=== PATIENT | female | born 1995 ===

== ENCOUNTER 2018-01-08 15:31 | Emergency (ER) | payer OTHER, BC ==
[2018-01-08] MEDS ORDERED: Tdap Vaccine 0.5 ml Vial (10-64 yrs) IM ONE ×2 (16:09→16:15)
--- NOTE | 2018-01-08 16:14 | ED PDOC ---
Lower Extremity Pain/Injury Chief Complaint (Nursing): Lower Extremity Problem/Injury Chief Complaint (Provider): Puncture wound History Per: Patient History/Exam Limitations: no limitations Onset/Duration Of Symptoms: Hrs (x5) Current Symptoms Are (Timing): Still Present Additional Complaint(s): Shahida Liao is a 22 year old female, with no significant past medical history, who presents to the emergency department complaining of right knee pain onset since 11:00am this morning. Patient works at [employer] and reports while at work she kneeled over when a needle accidentally went in her knee. She pulled it out and cleaned the wound with soap and water but is now complaining of pain to the right knee. She is not up to date with her tetanus. She denies any other medical complaints. PMD: None provided. Past Medical History Reviewed: Historical Data, Nursing Documentation, Vital Signs Vital Signs: Last Vital Signs Temp 98.1 F 01/08/18 15:54 Pulse 85 01/08/18 15:54 Resp 16 01/08/18 15:54 BP 131/80 01/08/18 15:54 Pulse Ox 96 01/08/18 15:54 - Medical History PMH: Gastritis, Migraine - Surgical History Surgical History: No Surg Hx - Family History Family History: States: Unknown Family Hx - Immunization History Hx Tetanus Toxoid Vaccination: No Hx Influenza Vaccination: No Hx Pneumococcal Vaccination: No - Home Medications Home Medications: Ambulatory Orders Medication Instructions Recorded Ondansetron ODT [Zofran ODT] 4 mg PO QID #20 odt 10/26/16 guaiFENesin/Codeine [Robitussin 5 ml PO Q4H #150 ml 10/26/16 w/Codeine] Cephalexin [cephalexin] 500 mg PO QID #20 cap 01/08/18 - Allergies Allergies/Adverse Reactions: Allergies Allergy/AdvReac Type Severity Reaction Status Date / Time No Known Allergies Allergy Verified 12/10/14 12:08 Review of Systems ROS Statement: Except As Marked, All Systems Reviewed And Found Negative Musculoskeletal: Positive for: Leg Pain (right knee) Physical Exam - Reviewed Nursing Documentation Reviewed: Yes Vital Signs Reviewed: Yes - Physical Exam Appears: Positive for: Well, Non-toxic, No Acute Distress Head Exam: Positive for: ATRAUMATIC, NORMAL INSPECTION, NORMOCEPHALIC Skin: Positive for: Normal Color, Warm, Dry Eye Exam: Positive for: Normal appearance Extremity: Positive for: Normal ROM (Right lower extremities normal. No decrease in strength or motor ability. ), Other (Small <0.1mm puncture wound to medial side of right patella. No bleeding, drainage, discharge or erythema. Wound healed. Walking with mild limp.). Negative for: Deformity, Swelling Neurologic/Psych: Positive for: Alert, Oriented - ECG O2 Sat by Pulse Oximetry: 96 (RA) Pulse Ox Interpretation: Normal Medical Decision Making Medical Decision Making: Initial Impression: Right knee puncture wound Initial Plan: --Adacel 0.5 ml IM -Will prescribe Cephalexin 500 mg PO QID. ~ Scribe Attestation: Documented by Ilya Kc, acting as a scribe for Phillip Hall PA-C. Provider Scribe Attestation: All medical record entries made by the Scribe were at my direction and personally dictated by me. I have reviewed the chart and agree that the record accurately reflects my personal performance of the history, physical exam, medical decision making, and the department course for this patient. I have also personally directed, reviewed, and agree with the discharge instructions and disposition. Disposition - Clinical Impression Clinical Impression: Puncture wound, Knee injury - Patient ED Disposition Is Patient to be Admitted: No Doctor Will See Patient In The: Office Counseled Patient/Family Regarding: Diagnosis, Need For Followup, Rx Given - Disposition Disposition: Routine/Home Disposition Time: 16:24 Condition: GOOD Prescriptions: Cephalexin [cephalexin] 500 mg PO QID #20 cap Instructions: Patellofemoral Pain (DC) Forms: [employer] (Gabonese)
[2018-01-09 11:13] VITALS: BP 131/80; PULSE 85; RESP 16; TEMP 98.1; O2SAT 96
== END 2018-01-08 16:28 | disposition home or self-care (01) ==
LOC: H.ER 15:31
DX: S81.021A Laceration with foreign body, right knee, initial encounter (principal); W26.8XXA Contact with other sharp object(s), not elsewhere classified, initial encounter; Y99.0 Civilian activity done for income or pay

== ENCOUNTER 2018-01-11 18:51 | Emergency (ER) | payer BC, OTHER ==
[2018-01-11 19:05] VITALS: BP 120/74; PULSE 93; RESP 20; TEMP 98.1; O2SAT 98
--- NOTE | 2018-01-11 21:40 | ED PDOC ---
Lower Extremity Pain/Injury Time Seen by Provider: 01/11/18 19:03 Chief Complaint (Nursing): Abnormal Skin Integrity Chief Complaint (Provider): leg injury History Per: Patient History/Exam Limitations: no limitations Onset/Duration Of Symptoms: Days () Current Symptoms Are (Timing): Still Present Additional Complaint(s): 22 year old female presents to the ED complaining of a leg injury. Reports on , at work when she knelt down, she sustained a puncture wound on right knee with pin used to keep clothing together. Patient was seen in ED the same day and was given Tetanus shot and Cephalexin which she has been taking. But has developed increasing pain at the site of puncture wound and pain on right calf. She is trying to keep leg immobile and has been taking Advil without any pain relief. Denies chest pain, shortness of breath, history of DVT or PE. Also denies fever, numbness, or foreign body substance. PMD: No Family Provider - Knee Description Of Injury: Struck Against Object (pin) Past Medical History Reviewed: Historical Data, Nursing Documentation, Vital Signs Vital Signs: Last Vital Signs Temp 98.1 F 01/11/18 19:02 Pulse 93 H 01/11/18 19:02 Resp 20 01/11/18 19:02 BP 120/74 01/11/18 19:02 Pulse Ox 98 01/11/18 19:02 - Medical History PMH: Gastritis, Migraine Denies: Deep Vein Thrombosis - Family History Family History: States: Unknown Family Hx - Social History Current smoker - smoking cessation education provided: No Alcohol: Occasional Drugs: Denies - Immunization History Hx Tetanus Toxoid Vaccination: No Hx Influenza Vaccination: No Hx Pneumococcal Vaccination: No - Home Medications Home Medications: Ambulatory Orders Medication Instructions Recorded Ondansetron ODT [Zofran ODT] 4 mg PO QID #20 odt 10/26/16 guaiFENesin/Codeine [Robitussin 5 ml PO Q4H #150 ml 10/26/16 w/Codeine] Cephalexin [cephalexin] 500 mg PO QID #20 cap 01/08/18 - Allergies Allergies/Adverse Reactions: Allergies Allergy/AdvReac Type Severity Reaction Status Date / Time No Known Allergies Allergy Verified 12/10/14 12:08 Review of Systems ROS Statement: Except As Marked, All Systems Reviewed And Found Negative Constitutional: Negative for: Fever Cardiovascular: Negative for: Chest Pain Respiratory: Negative for: Shortness of Breath Musculoskeletal: Positive for: Leg Pain (right) Neurological: Negative for: Numbness, Other (foreign body substance) Physical Exam - Reviewed Nursing Documentation Reviewed: Yes Vital Signs Reviewed: Yes - Physical Exam Appears: Positive for: Non-toxic, No Acute Distress Head Exam: Positive for: ATRAUMATIC, NORMAL INSPECTION, NORMOCEPHALIC Skin: Positive for: Normal Color, Warm, Dry Cardiovascular/Chest: Positive for: Regular Rate, Rhythm. Negative for: Tachycardia Respiratory: Positive for: Normal Breath Sounds. Negative for: Respiratory Distress Pulses-Dorsalis Pedis (L): 2+ Pulses-Dorsalis Pedis (R): 2+ Extremity: Positive for: Normal ROM (FROM actively of R knee), Tenderness ( minimal right calf), Other (Superficial puncture wound on the medial surface of right knee w/o warmth erythematous). Negative for: Deformity (hormans sign on right leg), Swelling Neurologic/Psych: Positive for: Alert, Oriented (x3) - ECG O2 Sat by Pulse Oximetry: 98 (RA) Pulse Ox Interpretation: Normal - Progress ED Course And Treament: Knee x-ray: no bony abnormality. Duplex RLE US vein: no DVT On re-evaluation, pt. reports moderate analgesia. Knee kelly wrapped by AIDA. Crutches provided. Advised to continue Keflex and to f/u with ortho if symptoms worsen but is to return to ED immediately if fever develops. Medical Decision Making Medical Decision Making: Time: 1908 Initial Plan: --ED Urine --Knee 3 views RT [RAD] --Toradol 30mg --Duplex lower extremity vein right [US] --Reevaluation Scribe Attestation: Documented by Jase Hunt, acting as a scribe for Ephraim Lemons PA-C Provider Scribe Attestation: All medical record entries made by the Scribe were at my direction and personally dictated by me. I have reviewed the chart and agree that the record accurately reflects my personal performance of the history, physical exam, medical decision making, and the department course for this patient. I have also personally directed, reviewed, and agree with the discharge instructions and disposition. Disposition - Clinical Impression Clinical Impression: Puncture wound, Visit for wound check - Patient ED Disposition Is Patient to be Admitted: No - Disposition Disposition: Routine/Home Disposition Time: 21:54 Condition: STABLE Additional Instructions: Continue Keflex as previously prescribed. Take Advil for pain. Follow up with Dr. Jorge Luis Borja, orthopedist, for further evaluation. Return to ED if symptoms worsen. Instructions: How to Use Crutches, Knee Pain (DC) Forms: [facility] (Mozambican) Print Language: DIVEHI
--- NOTE | 2018-01-12 09:20 | RAD ---
PROCEDURE: Right Knee Radiographs. HISTORY: trauma, puncture wound COMPARISON: None. FINDINGS: BONES: No acute fracture. JOINTS: Unremarkable. JOINT EFFUSION: None. OTHER FINDINGS: No obvious soft tissue defect or retained radiopaque foreign body. IMPRESSION: No demonstrated fracture or dislocation.
--- NOTE | 2018-01-12 09:42 | US ---
PROCEDURE: Right lower extremity venous duplex Doppler. HISTORY: pain COMPARISON: None available. TECHNIQUE: Common femoral, superficial femoral, popliteal and posterior tibial veins were evaluated. Flow was assessed with color Doppler, compressibility, assessment of phasic flow and augmentation response. FINDINGS: COMMON FEMORAL VEIN: Unremarkable. SUPERFICIAL FEMORAL VEIN: Unremarkable. POPLITEAL VEIN: Unremarkable. POSTERIOR TIBIAL VEIN: Unremarkable. OTHER FINDINGS: None. IMPRESSION: No evidence of deep venous thrombosis in the right lower extremity.
== END 2018-01-11 22:10 | disposition home or self-care (01) ==
LOC: H.ER 18:51
DX: Z48.01 Encounter for change or removal of surgical wound dressing (principal)
CPT/HCPCS: 73562; 81025; 93971; 96372; 99284; J1885